=== PATIENT | male | born 1965 | race American Indian/Alaskan Native ===

== ENCOUNTER 2016-05-08 11:37 | Emergency (ER) | payer OTHER ==
[2016-05-08 11:51] VITALS: BP 131/79
[2016-05-08 17:23] LABS: Anion Gap 15 mmol/L; BUN/Creatinine Ratio 13.63; Blood Urea Nitrogen 15 mg/dL (9-20); Calcium 9.2 mg/dL (8.4-10.2); Carbon Dioxide 28 mmol/L (22-30); Chloride 105.7 mmol/L (98-107); Glucose 93 mg/dL (75-100); Sodium 144 mmol/L (137-145); Uric Acid 5.9 mg/dL (3.5-7.6)
[2016-05-08 17:28] LABS: Hematocrit 42.9 % (35.5-45.6); Hemoglobin 13.4 gm/dl (11.8-15.2); Mean Corpuscular HGB Conc 31 % (32-34); Platelet Count 175 K/mm3 (140-440); Red Blood Count 7.23 M/mm3 (3.65-5.03)
[2016-05-08] MEDS ORDERED: MOTRIN PO ONE (17:39)
[2016-05-08 17:44] LABS: Mean Corpuscular Hemoglobin 19 pg (28-32); Mean Corpuscular Volume 59 fl (84-94); Red Cell Distribution Width 22.7 % (13.2-15.2)
--- NOTE | 2016-05-08 19:07 | Emergency Department Report ---
Entered by KAREEM ARNOLD, acting as scribe for MIGUEL ROSA PA. ED General Adult HPI - General Chief complaint: Extremity Injury, Lower Stated complaint: RT LEG/FOOT PAIN Time Seen by Provider: 05/08/16 16:02 Source: patient Mode of arrival: Ambulatory Limitations: No Limitations - History of Present Illness Initial comments: 50 year old male with PMHx of gout to bilateral feet presents to the ED for evaluation of worsening left foot pain for 2 weeks. He reports his normal diet includes beer, soda, and red meat; states he stopped drinking beer after initial pain onset. Pain is consistent with previous episodes of gout. Onset/Timin -: week(s) Location: left (foot pain) Radiation: non-radiation Quality: constant Improves with: none Worsens with: movement Associated Symptoms: denies: chest pain, fever/chills, nausea/vomiting, shortness of breath, other (injury) Treatments Prior to Arrival: NSAID (ibuprofen with mild relief) - Related Data Previous Rx's Medication Instructions Recorded Last Taken Type Colchicine 0.6 mg PO QDAY #7 capsule 05/08/16 Unknown Rx Ibuprofen [Motrin 800 MG tab] 800 mg PO ONCE #30 tablet 05/08/16 Unknown Rx Allergies Allergy/AdvReac Type Severity Reaction Status Date / Time No Known Allergies Allergy Unverified 05/08/16 11:51 ED Review of Systems Comment: All other systems reviewed and negative Constitutional: denies: chills, fever Respiratory: denies: shortness of breath Cardiovascular: denies: chest pain Gastrointestinal: denies: abdominal pain, nausea, vomiting Musculoskeletal: other (reports pain to right foot. Denies injury) ED Past Medical Hx - Past Medical History Previous Medical History?: Yes Hx Asthma: Yes Additional medical history: gout - Surgical History Additional Surgical History: hernia repair - Social History Smoking Status: Current Every Day Smoker Substance Use Type: Alcohol - Medications Home Medications: Home Medications Medication Instructions Recorded Confirmed Last Taken Type Colchicine 0.6 mg PO QDAY #7 capsule 05/08/16 Unknown Rx Ibuprofen [Motrin 800 MG tab] 800 mg PO ONCE #30 tablet 05/08/16 Unknown Rx ED Physical Exam - General Limitations: No Limitations General appearance: alert, in no apparent distress - Head Head exam: Present: atraumatic, normocephalic - Respiratory Respiratory exam: Absent: respiratory distress - Cardiovascular Cardiovascular Exam: Present: regular rate, normal rhythm - Extremities Exam Extremities exam: Present: other (erythema and mmild edema to left great metatarsal) - Neurological Exam Neurological exam: Present: alert, oriented X3 - Psychiatric Psychiatric exam: Present: normal affect, normal mood ED Course Vital Signs 05/08/16 05/08/16 11:48 18:25 Temperature 98.1 F Pulse Rate 80 Respiratory 18 16 Rate Blood Pressure 131/79 O2 Sat by Pulse 100 Oximetry ED Medical Decision Making - Lab Data Result diagrams: 05/08/16 16:50 05/08/16 16:50 ED Disposition Clinical Impression: Gout attack Clinical Impression: (Ruled Out): Gout, Cellulitis of toe of left foot Disposition: DISCHARGED TO HOME OR SELFCARE Is pt being admited?: No Does the pt Need Aspirin: No Condition: Stable Instructions: Acute Gouty Arthritis (ED), Self-Care Measures with a Chronic Disease (ED) Additional Instructions: Take prescriptions as instructed. Reduce beer, red meat, shrimp, and cheese in your diet. Follow up with primary care physician. Prescriptions: Colchicine 0.6 mg PO QDAY #7 capsule Ibuprofen [Motrin 800 MG tab] 800 mg PO ONCE #30 tablet Referrals: PRIMARY CARE, [Primary Care Provider] - 3-5 Days [facility] [Outside] - 3-5 Days Forms: Work/School Release Form(ED) This documentation as recorded by the CATALINA munoz REBEKAH,accurately reflects the service I personally performed and the decisions made by me,MIGUEL ROSA PA.
== END 2016-05-08 19:12 | disposition home or self-care (01) ==
LOC: ED 11:37
DX: M10.9 Gout, unspecified (principal); J45.909 Unspecified asthma, uncomplicated; F17.200 Nicotine dependence, unspecified, uncomplicated
CPT/HCPCS: 36415; 80048; 84550; 85027; 99283

== ENCOUNTER 2016-11-30 17:52 | Emergency (ER) | payer OTHER ==
[2016-11-30 18:12] VITALS: BP 126/76
[2016-11-30 19:07] LABS: Basophils % (Auto) 0.6 % (0.0-1.8); Eosinophils % (Auto) 1.4 % (0.0-4.3); Hematocrit 40.5 % (35.5-45.6); Mean Corpuscular HGB Conc 32 % (32-34); Platelet Count 145 K/mm3 (140-440); Red Blood Count 6.99 M/mm3 (3.65-5.03); White Blood Count 9.9 K/mm3 (4.5-11.0)
[2016-11-30 19:09] LABS: Mean Corpuscular Hemoglobin 19 pg (28-32); Mean Corpuscular Volume 58 fl (84-94); Red Cell Distribution Width 21.6 % (13.2-15.2)
[2016-11-30 19:29] LABS: Alanine Aminotransferase 27 units/L (7-56); Albumin 4.6 g/dL (3.9-5); Albumin/Globulin Ratio 1.6 %; Alkaline Phosphatase 77 units/L (35-129); Anion Gap 18 mmol/L; BUN/Creatinine Ratio 17; Blood Urea Nitrogen 20 mg/dL (9-20); Calcium 9.5 mg/dL (8.4-10.2); Carbon Dioxide 26 mmol/L (22-30); Chloride 100.7 mmol/L (98-107); Glucose 102 mg/dL (75-100); Lipase 32 units/L (13-60); Sodium 141 mmol/L (137-145); Total Protein 7.5 g/dL (6.3-8.2)
[2016-11-30 21:13] LABS: Bilirubin,Urine NEG (Negative); Blood,Urine SM (Negative); Ketones,Urine NEG (Negative); Leukocyte Esterase,Urine TR (Negative); Mucus,Urine FEW /HPF; Nitrite,Urine NEG (Negative); Protein,Urine <15 mg/dL mg/dL (Negative); Urobilinogen,Urine < 2.0 mg/dL (<2.0)
== END 2016-12-01 03:07 | disposition left against medical advice (07) ==
LOC: ED 17:52
DX: R10.9 Unspecified abdominal pain (principal); R07.9 Chest pain, unspecified; Z53.21 Procedure and treatment not carried out due to patient leaving prior to being seen by health care provider
CPT/HCPCS: 36415; 80053; 81001; 83690; 84484; 85025; 93005; 93010

== ENCOUNTER 2020-06-30 09:11 | Emergency (ER) | payer OTHER ==
[2020-06-30 09:45] VITALS: BP 128/69
[2020-06-30] MEDS ORDERED: predniSONE 20 MG TAB PO ONE (11:16)
[2020-06-30] MEDS ORDERED: IBUPROFEN 800 MG TAB PO ONE (11:16)
[2020-06-30] MEDS ORDERED: COLCHICINE 0.6 MG TAB PO NR (11:16)
--- NOTE | 2020-06-30 11:59 | Emergency Department Report ---
ED Extremity Problem HPI - General Chief complaint: Extremity Problem,Nontraumatic Stated complaint: LT FOOT PAIN Time Seen by Provider: 06/30/20 11:15 Source: patient Mode of arrival: Ambulatory Limitations: No Limitations - History of Present Illness Initial comments: 54-year-old -[place] male presents to the emergency room for left great metatarsal pain for the last week. Patient states that he was seen by [facility] on Tuesday and was placed on medication he is not sure of the medicines but does know ibuprofen. Patient denies any history of gout no diabetes. Patient denies any injury. Patient states that his pain to bear weight and even pain when he places a sock on his foot. MD Complaint: joint swelling, joint paint Onset/Timin -: week(s) Location: left, toe History of Same: No -: Yes arthralgia Severity scale (0 -10): 10 Quality: stabbing, sharp Consistency: constant Improves with: nothing Worsens with: weight bearing, walking, palpation Associated Symptoms: denies other symptoms - Related Data Previous Rx's Medication Instructions Recorded Last Taken Type Ibuprofen [Motrin 800 MG tab] 800 mg PO ONCE #30 tablet 05/08/16 Unknown Rx predniSONE [Deltasone] 20 mg PO DAILY #15 tablet 06/09/18 Unknown Rx methOCARBAMOL [Robaxin TAB] 750 mg PO Q8H PRN #20 tablet 11/12/18 Unknown Rx Colchicine 0.6 mg PO QDAY #7 capsule 06/30/20 Unknown Rx HYDROcodone/APAP 5-325 [[place] 1 each PO Q6HR PRN #12 tablet 06/30/20 Unknown Rx 5-325 mg TAB] Ibuprofen [Motrin 800 MG tab] 800 mg PO Q8HR PRN #30 tablet 06/30/20 Unknown Rx predniSONE [Deltasone] 50 mg PO QDAY #7 tab 06/30/20 Unknown Rx Allergies Allergy/AdvReac Type Severity Reaction Status Date / Time No Known Allergies Allergy Unverified 05/08/16 11:51 ED Review of Systems ROS: Stated complaint: LT FOOT PAIN Other details as noted in HPI Comment: All other systems reviewed and negative ED Past Medical Hx - Past Medical History Previous Medical History?: Yes Hx Asthma: Yes Additional medical history: gout - Surgical History Past Surgical History?: Yes Additional Surgical History: hernia repair - Social History Smoking Status: Never Smoker Substance Use Type: None - Medications Home Medications: Home Medications Medication Instructions Recorded Confirmed Last Taken Type Ibuprofen [Motrin 800 MG tab] 800 mg PO ONCE #30 tablet 05/08/16 Unknown Rx predniSONE [Deltasone] 20 mg PO DAILY #15 tablet 06/09/18 Unknown Rx methOCARBAMOL [Robaxin TAB] 750 mg PO Q8H PRN #20 tablet 11/12/18 Unknown Rx Colchicine 0.6 mg PO QDAY #7 capsule 06/30/20 Unknown Rx HYDROcodone/APAP 5-325 [[place] 1 each PO Q6HR PRN #12 tablet 06/30/20 Unknown Rx 5-325 mg TAB] Ibuprofen [Motrin 800 MG tab] 800 mg PO Q8HR PRN #30 tablet 06/30/20 Unknown Rx predniSONE [Deltasone] 50 mg PO QDAY #7 tab 06/30/20 Unknown Rx ED Physical Exam - General Limitations: No Limitations General appearance: alert, in no apparent distress - Head Head exam: Present: atraumatic, normocephalic - Eye Eye exam: Present: normal appearance - ENT ENT exam: Present: normal external ear exam - Neck Neck exam: Present: normal inspection, full ROM - Respiratory Respiratory exam: Absent: respiratory distress, accessory muscle use - Expanded Lower Extremity Exam Left Hip exam: Present: normal inspection Upper Leg exam: Present: normal inspection Knee exam: Present: normal inspection Lower Leg exam: Present: normal inspection Ankle exam: Present: normal inspection Foot/Toe exam: Present: tenderness (First metatarsal), swelling (First metatarsal), erythema (First metatarsal) Neuro vascular tendon exam: Present: no vascular compromise Gait: Positive: observed and limited by pain - Back Exam Back exam: Present: normal inspection - Neurological Exam Neurological exam: Present: alert, oriented X3 - Psychiatric Psychiatric exam: Present: normal affect, normal mood - Skin Skin exam: Present: warm, dry, intact, normal color. Absent: rash ED Course Vital Signs 06/30/20 09:45 Temperature 98.8 F Pulse Rate 88 Respiratory 16 Rate Blood Pressure 128/69 [Right] O2 Sat by Pulse 98 Oximetry ED Medical Decision Making - Medical Decision Making 54-year-old -[place] male presents to the emergency room for left great metatarsal pain for the last week. Patient states that he was seen by [facility] on Tuesday and was placed on medication he is not sure of the medicines but does know ibuprofen. Patient denies any history of gout no diabetes. Patient denies any injury. Patient states that his pain to bear weight and even pain when he places a sock on his foot. Colchicine 1.2 mg ordered, ibuprofen, prednisone 40 mg p.o. Patient denies any history of diabetes. Critical care attestation.: If time is entered above; I have spent that time in minutes in the direct care of this critically ill patient, excluding procedure time. ED Disposition Clinical Impression: Gout attack Disposition: TO HOME OR SELFCARE Is pt being admited?: No Does the pt Need Aspirin: No Condition: Stable Instructions: Low-Purine Eating Plan Additional Instructions: Take medication as prescribed. Watch her diet avoid drinking alcohol red meat seafood follow-up with [facility] primary care provider. Prescriptions: Colchicine 0.6 mg PO QDAY #7 capsule predniSONE [Deltasone] 50 mg PO QDAY #7 tab Ibuprofen [Motrin 800 MG tab] 800 mg PO Q8HR PRN #30 tablet PRN Reason: Pain HYDROcodone/APAP 5-325 [[place] 5-325 mg TAB] 1 each PO Q6HR PRN #12 tablet PRN Reason: Pain Referrals: PRIMARY CARE, [Primary Care Provider] - 3-5 Days [facility] [Provider Group] - 3-5 Days Forms: Work/School Release Form(ED)
== END 2020-06-30 13:30 | disposition home or self-care (01) ==
LOC: ED 09:11
DX: M10.9 Gout, unspecified (principal); J45.909 Unspecified asthma, uncomplicated; Z79.899 Other long term (current) drug therapy; Z98.890 Other specified postprocedural states
CPT/HCPCS: 99281; J7512